=== PATIENT | female | born 1990 | race Hispanic/Latino ===

== ENCOUNTER 2020-03-05 11:27 | Emergency (ER) | payer OTHER ==
[~2020-03-05] VITALS: Ht 170.2 cm; Wt 77.1 kg
--- NOTE | 2020-03-05 12:24 | Emergency Department Note ---
History of Present Illnes History of Present Illness Chief Complaint: bodyaches, fever, chills, st, cough History of Present Illness This is a 29 year old female. was doing well prior to this. coworker was dx covid+ and pt was exposed Historian: Patient Arrival Mode: Car History limited by: condition of the patient (normal) Operations Advisor Required: No Location: n/a Quality: n/a Radiation: Denies non-radiation Severity: moderate Onset quality: gradual Timing of current episode: intermittent Progression: waxing and waning Chronicity: new Context: Denies recent illness Relieving factors: none Exacerbating factors: none Associated symptoms: Reports cough, Reports fever/chills Treatments prior to arrival: none Past Medical/Family History Physician Review I have reviewed the patient's past medical and family history. Any updates have been documented here. Past Medical History Recent Fever: No Clinical Suspicion of Infectio: No New/Unexplained Change in Ment: No Past Medical History: None Past Surgical History: None Social History Smoking Cessation: Never Smoker Counseling Performed: No Alcohol Use: Social Any Illegal Drug Use: No TB Exposure/Symptoms: No Physically hurt or threatened: No Family History Family history of heart diseas: No Other Any Pre-Existing Lines (PICC,: No Is patient up to date on immun: No Review of Systems Review of Systems Constitutional: Reports as per HPI EENTM: Reports as per HPI Cardiovascular: Reports no symptoms Respiratory: Reports as per HPI Gastrointestinal: Reports no symptoms Genitourinary: Reports no symptoms Musculoskeletal: Reports no symptoms Integumentary: Reports no symptoms Neurological: Reports no symptoms Psychological: Reports no symptoms Endocrine: Reports no symptoms Hematological/Lymphatic: Reports no symptoms Review of other systems: All other systems negative Physical Exam Related Data Allergies: Coded Allergies: No Known Allergies (Unverified , 03/05/20) Vital signs reviewed: Yes Physical Exam CONSTITUTIONAL Constitutional: Present well-developed, Present well-nourished HENT HENT: Present normocephalic, Present atraumatic, Present nose normal, Present pharynx abnormal (erythema) HENT L/R: Present left ext ear normal, Present right ext ear normal EYES Eyes: Reports PERRL, Reports conjunctivae normal NECK Neck: Present ROM normal PULMONARY Pulmonary: Present effort normal, Present breath sounds normal CARDIOVASCULAR Cardiovascular: Present regular rhythm, Present heart sounds normal, Present capillary refill normal, Present normal rate GASTROINTESTINAL Abdominal: Present soft, Present nontender, Present bowel sounds normal GENITOURINARY Genitourinary: Present exam deferred SKIN Skin: Present warm, Present dry MUSCULOSKELETAL Musculoskeletal: Present ROM normal NEUROLOGICAL Neurological: Present alert, Present oriented x 3, Present no gross motor or sensory deficits PSYCHOLOGICAL Psychological: Present mood/affect normal, Present judgement normal Assessment & Plan Medical Decision Making MDM self quarantine for14 days. [address] to [address] thru [facility] site Assessment & Plan Final Impression: (1) Viral syndrome Depart Disposition: HOME, SELF-CARE AUDELIA BENNETT Mar 05, 2020 12:24
== END 2020-03-05 12:48 | disposition home or self-care (01) ==
LOC: FSED 11:27
DX: R50.9 Fever, unspecified (principal); R05 Cough; B34.9 Viral infection, unspecified; Z20.828 Contact with and (suspected) exposure to other viral communicable diseases
CPT/HCPCS: 99283

== ENCOUNTER 2024-10-02 18:56 | Emergency (ER) | payer SELFPAY ==
[~2024-10-02] VITALS: Ht 170.2 cm; Wt 89.8 kg
[2024-10-02] MEDS: IBUPROFEN 600 MG TAB PO STA (19:56)
[2024-10-02] MEDS: TRAMADOL HCL 50 MG TAB PO ONE (20:37)
[2024-10-02 20:47] VITALS: PULSE 71; RESP 16; TEMP 98
[2024-10-02] MEDS ORDERED: KETOROLAC TROME10 MG PO (21:14)
[2024-10-02] MEDS ORDERED: ULTRAM 50MG50 MG PO (21:15)
[2024-10-02 21:22] VITALS: BP 128/87; PULSE 71; RESP 16; TEMP 98; O2SAT 99
== END 2024-10-02 21:27 | disposition home or self-care (01) ==
LOC: FSED 19:31
DX: M25.512 Pain in left shoulder (principal); W01.0XXA Fall on same level from slipping, tripping and stumbling without subsequent striking against object, initial encounter; Y93.01 Activity, walking, marching and hiking; Y92.89 Other specified places as the place of occurrence of the external cause
CPT/HCPCS: 99284

== ENCOUNTER 2024-12-21 10:09 | Emergency (ER) | payer OTHER ==
[~2024-12-21] VITALS: Ht 172.7 cm; Wt 90.3 kg
[~2024-12-21 10:09] MED LIST: KETOROLAC TROME10 MG PO; ULTRAM 50MG50 MG PO
[2024-12-21] MEDS ORDERED: IOPAMIDOL 370 MG/ML 100 ML INFUS..BTL INJ ONE (10:42)
[2024-12-21 12:42] VITALS: PULSE 68; RESP 14; TEMP 97.7; O2SAT 99
[2024-12-21] MEDS: KETOROLAC TROMETHAMINE 30 MG/ML VIAL IV STA (12:44)
== END 2024-12-21 12:42 | disposition home or self-care (01) ==
LOC: FSED 10:11
DX: R10.11 Right upper quadrant pain (principal)
CPT/HCPCS: 74177; 80053; 81003; 81025; 85025; 96374; 99284; J1885; Q9967

== ENCOUNTER 2025-04-26 13:37 | Emergency (ER) | payer SELFPAY ==
[~2025-04-26] VITALS: Ht 172.7 cm; Wt 88.6 kg
[2025-04-26] MEDS: KETOROLAC TROMETHAMINE 30 MG/ML VIAL IV STA (14:27)
[2025-04-26 16:28] VITALS: PULSE 81; RESP 16; TEMP 98.4; O2SAT 96
== END 2025-04-26 16:51 | disposition home or self-care (01) ==
LOC: FSED 13:43
DX: R10.11 Right upper quadrant pain (principal); K63.89 Other specified diseases of intestine; R11.0 Nausea
CPT/HCPCS: 76705; 80053; 81003; 81025; 85025; 96374; 99284; J1885